=== PATIENT | female | born 1970 | race Caucasian/White ===

== ENCOUNTER 2019-06-24 | Emergency (ER) | payer OTHER, BC ==
[~2019-06-24] VITALS: Ht 172.7 cm; Wt 65.8 kg
[~2019-06-24] MED LIST: Bactrim Ds Tab1 EACH PO; KETO10 PO; Naprosyn500 MG PO; Percocet 5-3251 EACH PO
== END 2019-06-24 01:57 | disposition home or self-care (01) ==
LOC: ER
DX: S09.90XA Unspecified injury of head, initial encounter (principal); H53.8 Other visual disturbances; L53.9 Erythematous condition, unspecified; Y04.2XXA Assault by strike against or bumped into by another person, initial encounter
CPT/HCPCS: 70450; 70486; 99283-25

== ENCOUNTER 2020-08-17 19:40 | Emergency (ER) | payer BC ==
[~2020-08-17] VITALS: Ht 172.7 cm; Wt 68.0 kg
[2020-08-17] MEDS ORDERED: Percocet 5-3251 EACH PO (20:39)
== END 2020-08-17 21:17 | disposition home or self-care (01) ==
LOC: ER 19:40
DX: S92.412A Displaced fracture of proximal phalanx of left great toe, initial encounter for closed fracture (principal); W10.9XXA Fall (on) (from) unspecified stairs and steps, initial encounter
CPT/HCPCS: 29515; 73590; 73630; 99283-25; A9270; A9270-GY

== ENCOUNTER 2022-09-07 08:43 | Emergency (ER) | payer BC ==
[~2022-09-07] VITALS: Ht 172.7 cm; Wt 77.1 kg
[2022-09-07 10:08] LABS: BASOPHILS ABSOLUTE AUTO 0.03 K/mm3 (0.00-0.23); BASOPHILS PERCENT AUTO 0 % (0-2); EOSINOPHILS ABSOLUTE AUTO 0.18 K/mm3 (0.00-0.68); EOSINOPHILS PERCENT AUTO 2 % (0-6); Hematocrit 36.1 % (33.0-51.0); Hemoglobin 11.7 g/dL (11.5-16.0); IMMATURE GRAN ABSOLUTE AUTO 0.01 K/mm3 (0.00-0.10); IMMATURE GRAN PERCENT AUTO 0 % (0-1); LYMPHOCYTES ABSOLUTE AUTO 3.15 K/mm3 (0.84-5.20); LYMPHOCYTES PERCENT AUTO 40 % (21-46); MONOCYTES ABSOLUTE AUTO 0.86 K/mm3 (0.16-1.47); MONOCYTES PERCENT AUTO 11 % (4-13); Mean Corpuscular HGB 30.5 pg (26.0-34.0); Mean Corpuscular HGB Conc 32.4 g/dL (31.5-36.5); Mean Corpuscular Volume 94 fL (80-100); Mean Platelet Volume 9.8 fL (9.1-12.4); NEUTROPHILS ABSOLUTE AUTO 3.59 K/mm3 (1.96-9.15); NEUTROPHILS PERCENT AUTO 46 % (41-73); Platelet Count 211 K/mm3 (150-400); RDW Standard Deviation 41.4 fL (35.1-46.3); Red Blood Cell Count 3.84 M/mm3 (3.80-5.20); White Blood Cell Count 7.82 K/mm3 (4.00-11.30)
[2022-09-07 10:26] LABS: Albumin, Blood 3.8 g/dL (3.4-5.0); Albumin/Globulin Ratio 1.1 (0.8-1.8); Bilirubin, Total 0.3 mg/dL (0.1-1.0); Bun/Creatinine Ratio 25.8 (12.0-20.0); Creatinine, Blood 0.7 mg/dL (0.40-1.00); Globulin, Blood 3.4 g/dL (2.2-4.0); Potassium, Blood 3.9 mmol/L (3.5-5.5); Total Protein, Blood 7.2 g/dL (6.4-8.2)
[2022-09-07] MEDS ORDERED: HYDR1TAB94 PO (12:48)
[2022-09-07] MEDS ORDERED: ONDA4ODT MM (12:48)
== END 2022-09-07 12:58 | disposition home or self-care (01) ==
LOC: ER 08:43
PROVIDERS: Physician Assistant
DX: R10.11 Right upper quadrant pain (principal)
CPT/HCPCS: 36415; 74177; 76705; 80053; 83690; 85025; J1170; J1885; J2405; Q9967

== ENCOUNTER 2024-07-26 03:12 | Emergency (ER) | payer OTHER, BC ==
[~2024-07-26] VITALS: Ht 172.7 cm; Wt 74.8 kg
[~2024-07-26 03:12] MED LIST changes: +HYDR1TAB94 PO; +ONDA4ODT MM
[2024-07-26] MEDS ORDERED: Lactated Ringer's 1,000 ML IV ONE (03:50)
[2024-07-26 04:09] LABS: BASOPHILS ABSOLUTE AUTO 0.03 K/mm3 (0.00-0.23); BASOPHILS PERCENT AUTO 0 % (0-2); EOSINOPHILS ABSOLUTE AUTO 0.25 K/mm3 (0.00-0.68); EOSINOPHILS PERCENT AUTO 3 % (0-6); Hematocrit 33.6 % (33.0-51.0); IMMATURE GRAN ABSOLUTE AUTO 0.02 K/mm3 (0.00-0.10); IMMATURE GRAN PERCENT AUTO 0 % (0-1); LYMPHOCYTES ABSOLUTE AUTO 3.17 K/mm3 (0.84-5.20); LYMPHOCYTES PERCENT AUTO 43 % (21-46); MONOCYTES ABSOLUTE AUTO 0.67 K/mm3 (0.16-1.47); MONOCYTES PERCENT AUTO 9 % (4-13); Mean Corpuscular HGB 30.6 pg (26.0-34.0); Mean Corpuscular HGB Conc 32.7 g/dL (31.5-36.5); Mean Corpuscular Volume 93 fL (80-100); Mean Platelet Volume 9.8 fL (9.1-12.4); NEUTROPHILS ABSOLUTE AUTO 3.19 K/mm3 (1.96-9.15); NEUTROPHILS PERCENT AUTO 44 % (41-73); Platelet Count 222 K/mm3 (150-400); RDW Coefficient Variation 12.1 % (11.7-14.2); RDW Standard Deviation 41.3 fL (35.1-46.3); White Blood Cell Count 7.33 K/mm3 (4.00-11.30)
[2024-07-26 04:34] LABS: Albumin, Blood 3.5 g/dL (3.4-5.0); Albumin/Globulin Ratio 1.1 (0.8-1.8); Bilirubin, Total 0.3 mg/dL (0.1-1.0); Bun/Creatinine Ratio 22.5 (12.0-20.0); Calcium, Blood 9.1 mg/dL (8.5-10.1); Creatinine, Blood 0.67 mg/dL (0.40-1.00); Free Thyroxine 0.97 ng/dL (0.70-1.60); Globulin, Blood 3.3 g/dL (2.2-4.0); Magnesium, Blood 1.9 mg/dL (1.6-2.4); Potassium, Blood 3.4 mmol/L (3.5-5.5); Thyroid Stimulating Hormone 3.13 uIU/mL (0.360-4.800); Total Protein, Blood 6.8 g/dL (6.4-8.2)
[2024-07-26 04:45] VITALS: BP 131/77
[2024-07-26] MEDS ORDERED: Potassium Chloride 20 MEQ/15 ML UDC PO ONE (04:50)
[2024-07-26] MEDS ORDERED: Ketorolac Tromethamine 15mg Vial IV ONE (05:05)
[2024-07-26] MEDS ORDERED: POTA10T PO (05:05)
== END 2024-07-26 05:28 | disposition home or self-care (01) ==
LOC: ER 03:12
PROVIDERS: Student in an Organized Health Care Education/Training Program
DX: R55 Syncope and collapse (principal); R07.89 Other chest pain; Z86.79 Personal history of other diseases of the circulatory system
CPT/HCPCS: 80053; 83735; 84439; 84443; 84484; 85025; A9270; J1885; J7120

== ENCOUNTER 2024-10-03 18:21 | Emergency (ER) | payer BC ==
[~2024-10-03] VITALS: Ht 172.7 cm; Wt 77.1 kg
[~2024-10-03 18:21] MED LIST changes: +POTA10T PO
[2024-10-03 19:17] LABS: BASOPHILS ABSOLUTE AUTO 0.02 K/mm3 (0.00-0.23); BASOPHILS PERCENT AUTO 0 % (0-2); EOSINOPHILS ABSOLUTE AUTO 0.18 K/mm3 (0.00-0.68); EOSINOPHILS PERCENT AUTO 3 % (0-6); Hematocrit 35.2 % (33.0-51.0); Hemoglobin 11.5 g/dL (11.5-16.0); IMMATURE GRAN ABSOLUTE AUTO 0.01 K/mm3 (0.00-0.10); IMMATURE GRAN PERCENT AUTO 0 % (0-1); LYMPHOCYTES ABSOLUTE AUTO 2.42 K/mm3 (0.84-5.20); LYMPHOCYTES PERCENT AUTO 40 % (21-46); MONOCYTES ABSOLUTE AUTO 0.57 K/mm3 (0.16-1.47); MONOCYTES PERCENT AUTO 9 % (4-13); Mean Corpuscular HGB 30.3 pg (26.0-34.0); Mean Corpuscular HGB Conc 32.7 g/dL (31.5-36.5); Mean Corpuscular Volume 93 fL (80-100); Mean Platelet Volume 9.8 fL (9.1-12.4); NEUTROPHILS ABSOLUTE AUTO 2.86 K/mm3 (1.96-9.15); NEUTROPHILS PERCENT AUTO 47 % (41-73); Platelet Count 197 K/mm3 (150-400); RDW Coefficient Variation 12.2 % (11.7-14.2); RDW Standard Deviation 41.7 fL (35.1-46.3); White Blood Cell Count 6.06 K/mm3 (4.00-11.30)
[2024-10-03 19:36] LABS: Albumin, Blood 3.6 g/dL (3.4-5.0); Bilirubin, Total 0.4 mg/dL (0.1-1.0); Calcium, Blood 8.9 mg/dL (8.5-10.1); Creatinine, Blood 0.65 mg/dL (0.40-1.00); Globulin, Blood 3.5 g/dL (2.2-4.0); Potassium, Blood 3.9 mmol/L (3.5-5.5); Total Protein, Blood 7.1 g/dL (6.4-8.2)
[2024-10-03 22:30] VITALS: BP 111/79
== END 2024-10-03 22:52 | disposition home or self-care (01) ==
LOC: ER 18:21
PROVIDERS: Student in an Organized Health Care Education/Training Program
DX: R00.2 Palpitations (principal); I10 Essential (primary) hypertension; Z86.79 Personal history of other diseases of the circulatory system
CPT/HCPCS: 71046; 80053; 84484; 85025; 93005; 93010; 99285-25